=== PATIENT | female | born 1985 | race Caucasian/White ===

== ENCOUNTER 2016-10-26 10:30 | Emergency (ER) | payer MEDICAID, OTHER ==
[2016-10-26 11:19] LABS: SPECIFIC GRAVITY 1.025 (1.001-1.030); URINE BILIRUBIN NEGATIVE (NEGATIVE); URINE BLOOD NEGATIVE (NEGATIVE); URINE GLUCOSE (UA) NEGATIVE (NEGATIVE); URINE LEUKOCYTE ESTERASE NEGATIVE (NEGATIVE); URINE NITRITE NEGATIVE (NEGATIVE); URINE PROTEIN NEGATIVE (NEGATIVE); URINE UROBILINOGEN NORMAL (0-1 mg/dl)
[2016-10-26 11:20] LABS: HCG,QUALITATIVE URINE POSITIVE; URINE APPEARANCE CLEAR; URINE COLOR YELLOW
[2016-10-26 12:22] LABS: ABSOLUTE NEUTROPHIL COUNT 4.8 K/mm3 (1.8-7.7); BASO % 0.4 % (0.2-1.0); EOS # 0.1 (0.0-0.5); EOS % 1.3 % (0.9-2.9); HEMATOCRIT 36.6 % (37.0-47.0); HEMOGLOBIN 12.1 gm/l (12.0-16.0); IMM NEUT% 0.1 % (0-1); LYMPH # 1.9 (1.0-4.8); LYMPH % 25.1 % (15-45); MEAN CELL VOLUME 93.8 fl (81.0-99.0); MEAN CORPUSCULAR HGB CONC 33.1 g/dl (33.0-37.0); MEAN PLATELET VOLUME 9.8 fl (7.4-10.4); MONO # 0.6 (0.0-0.8); MONO % 8.2 % (4-12); NEUT % 64.9 % (43-75); PLATELET COUNT 301 K/mm3 (130-400); RED CELL DISTRIBUTION WIDTH 12.4 % (11.5-14.5)
[2016-10-26 12:30] LABS: CALCIUM 9.1 mg/dL (8.6-10.3)
--- NOTE | 2016-10-26 13:03 | US ---
Clinical History: Right lower quadrant pain. Positive test. Question of ectopic. Comparison: None Findings: Multiple grayscale, color-flow and duplex Doppler images during transabdominal and transvaginal pelvic ultrasound are obtained. An early intrauterine is identified. Mean sac diameter is 0.4 cm, for gestational age of 4 weeks and 2 days. Mean gestational age is 4 weeks and 2 days. Estimated date of delivery is 07/03/2017. No evidence of yolk sac or pole.. A normal amount of amniotic fluid is present. It is too early to comment upon placental location or evidence of previa. There is no subchorionic hemorrhage. Right ovary measures 3.7 x 1.6 x 3.3 cm with blood flow. Probable follicle is noted.. Left ovary measures 3.4 x 1.8 x 3.7 cm with blood flow. Probable corpus luteal cyst measuring 2.7 x 1.5 x 2.0 cm. Pelvic survey reveals no gross abnormalities. Impression: Gestational sac is identified without evidence of pole or yolk sac likely secondary to the early gestational age. No heart tones are noted, also likely secondary to early gestational age. Findings are compatible with gestation of unknown location. Ectopic is not excluded at this time. Serial beta hCG and ultrasound are recommended. Report was uploaded to the electronic medical record at approximately 1258 hours on 10/26/2016
== END 2016-10-26 13:33 | disposition home or self-care (01) ==
LOC: ED 10:30
DX: O26.891 Other specified pregnancy related conditions, first trimester (principal); R10.31 Right lower quadrant pain; O21.0 Mild hyperemesis gravidarum; F17.210 Nicotine dependence, cigarettes, uncomplicated; O99.331 Smoking (tobacco) complicating pregnancy, first trimester; Z3A.01 Less than 8 weeks gestation of pregnancy